=== PATIENT | female | born 1990 | race Caucasian/White ===

== ENCOUNTER 2016-08-26 20:21 | Emergency (ER) | payer OTHER ==
[2016-08-26 21:59] VITALS: BP 145/89
== END 2016-08-26 21:59 | disposition home or self-care (01) ==
LOC: ED 20:21
DX: M54.32 Sciatica, left side (principal); M54.31 Sciatica, right side; E11.9 Type 2 diabetes mellitus without complications; Z79.84 Long term (current) use of oral hypoglycemic drugs
CPT/HCPCS: J1885; J2270; J2405; Q0162

== ENCOUNTER 2016-08-29 00:32 | Emergency (ER) | payer OTHER ==
[2016-08-29 04:20] VITALS: BP 121/61
== END 2016-08-29 04:20 | disposition home or self-care (01) ==
LOC: ED 00:32
DX: M54.31 Sciatica, right side (principal); E11.9 Type 2 diabetes mellitus without complications; Z79.84 Long term (current) use of oral hypoglycemic drugs
CPT/HCPCS: J1885

== ENCOUNTER 2016-09-21 22:38 | Emergency (ER) | payer OTHER ==
[2016-09-21 23:13] VITALS: BP 163/109
== END 2016-09-21 23:13 | disposition home or self-care (01) ==
LOC: ED 22:38
DX: N76.0 Acute vaginitis (principal); E11.9 Type 2 diabetes mellitus without complications; Z79.84 Long term (current) use of oral hypoglycemic drugs

== ENCOUNTER 2017-03-15 12:37 | Emergency (ER) | payer OTHER ==
[2017-03-15 12:45] VITALS: BP 134/93
== END 2017-03-15 13:23 | disposition home or self-care (01) ==
LOC: ED 12:37
DX: L70.0 Acne vulgaris (principal); E11.9 Type 2 diabetes mellitus without complications; M54.30 Sciatica, unspecified side

== ENCOUNTER 2017-03-16 21:52 | Emergency (ER) | payer OTHER | END 2017-03-16 22:38 | disposition left against medical advice (07) | LOC: ED 21:52 | DX: L53.9 Erythematous condition, unspecified (principal); Z53.21 Procedure and treatment not carried out due to patient leaving prior to being seen by health care provider ==

== ENCOUNTER 2017-03-17 15:49 | Inpatient (IN) | payer OTHER ==
[~2017-03-17] VITALS: Ht 160 cm; Wt 112.5 kg
--- NOTE | 2017-03-17 16:45 | NUR ---
PT AWAITING MSE FOR EVAL OF POSS ABSCESS TO L SIDE CHIN/MANDIBLE
[2017-03-17 17:33] LABS: BASOPHIL % 0.6 % (0-2); PLATELET COUNT 179 x10^3mcL (130-400); RED CELL DISTRIBUTION WIDTH 12.8 % (11.5-14.5)
[2017-03-17 17:38] LABS: CALCIUM 9.2 mg/dL (8.5-10.1); CARBON DIOXIDE 28.7 mmol/L (21-32); CHLORIDE SERUM 99 mmol/L (98-107); CREATININE SERUM 0.6 mg/dL (0.6-1.0); GFR1 > 60 mL/min; GLUCOSE SERUM 291 mg/dL (74-106); POTASSIUM SERUM 3.9 mmol/L (3.5-5.1); SODIUM SERUM 135 mmol/L (136-145)
--- NOTE | 2017-03-17 18:02 | NUR ---
PT TO GO TO CT, HAS ROOM ASSIGNMENT BUT CANNOT GO UP UNTIL CT RESULTED AND OKAY PER DR. MARQUEZ
--- NOTE | 2017-03-17 18:04 | NUR ---
PER DR. MARQUEZ NO BLOOD CULTURES NEED TO BE DONE PRIOR TO ABX
--- NOTE | 2017-03-17 18:12 | NUR ---
PT OFF UNIT TO CT
[2017-03-17 18:15] LABS: microscopic required? YES; urine erythrocyte NEGATIVE (NEGATIVE)
--- NOTE | 2017-03-17 18:36 | NUR ---
CALLED TO CT TO START NEW IV LINE
[2017-03-17 18:38] LABS: MAGNESIUM 1.8 mg/dL (1.8-2.4); PHOSPHOROUS 3.3 mg/dL (2.5-4.9)
[2017-03-17 18:40] LABS: AMPHETAMINE QUAL UR NONE DETECTED (NEG <=1000)
[2017-03-17 18:40] LABS: ALBUMIN 3.2 g/dL (3.4-5.0); CHOLESTEROL/HDL RATIO 6.9
[2017-03-17 18:46] LABS: T3 TOTAL 1.19 ng/mL
--- NOTE | 2017-03-17 18:56 | NUR ---
REPORT GIVEN TO CHRISTOPHER CARDOSO.
[2017-03-17 18:57] LABS: FREE T4 1.11 ng/dL (0.76-1.46); FREE THYROXINE INDEX 3.2 ug/dL (1.4-4.5); T4(THYROXINE) 11.1 ug/dL (4.7-13.3)
--- NOTE | 2017-03-17 19:13 | NUR ---
REPORT GIVEN TO BUCK CARDOSO
--- NOTE | 2017-03-17 19:52 | NUR ---
PT REQUESTING TO USE RESTROOM. PT DENIES DIZZINESS, AMBULATED TO RESTROOM WITH STEADY GAIT.
[2017-03-17 20:20] VITALS: BP 146/93
--- NOTE | 2017-03-17 20:26 | NUR ---
RECEIVED PATIENT FROM ED VIA GUERNEY, PATIENT ALERT AND ORIENTED MOTHER AT BEDSIDE, TELE # 58 ST, IV ACCESS TO LAC WNL, C/O PAIN TO LEFT FACE WILL MEDICATE ORDERED, ORIENTED PATIENT TO ROOM AND SURROUNDINGS, BED IN LOW POSITION, BED RAILS UP X 2, CALL LIGHT WITHIN REACH, WILL ENDORSE CARE TO PRIMARY NURSE JACQUELINE CARDOSO
[2017-03-17 20:54] VITALS: BP 146/93
--- NOTE | 2017-03-17 21:00 | NUR ---
RECEIVED PT FROM YUAN CARDOSO. AAOX4. TELE #58. DENIES CP/PRESSURE AT THIS TIME. LUNGS CTA BILAT. DENIES SOB ON RA. PULSES STRONG. EDEMA TO BLE. BOWEL SOUNDS ACTIVE X4. IV TO LAC PATENT AND INTACT INFUSING WELL. PT AMBULATORY. COMPLAINING OF PAIN TO FACE D/T CELLULITIS. WILL MEDICATE PER EMAR PROTOCOL. BED IN LOWEST POSITION. CALL LIGHT WITHIN REACH. WILL CONTINUE TO MONITOR
--- NOTE | 2017-03-18 01:14 | NUR ---
PT RESTING PEACEFULLY IN BED. RESPIRATIONS EVEN AND UNLABORED. NO ACUTE DISTRESS AT THIS TIME. NO COMPLAINTS OF PAIN. IV TO LAC PATENT AND INTACT. INFUSING WELL. BED IN LOWEST POSITION. CALL LIGHT WITHIN REACH. WILL CONTINUE TO MONITOR
[2017-03-18 05:29] VITALS: BP 125/86
--- NOTE | 2017-03-18 06:26 | NUR ---
PT RESTING IN BED. AAOX4. COMPLAINED OF PAIN 10/06 AND MEDICATED WITH NORCO PRN. RESPIRATIONS EVEN AND UNLABORED. NO ACUTE DISTRESS AT THIS TIME. IV TO LAC PATENT AND INTACT. INFUSING WELL NS @120 ML/HR. BED IN LOWEST POSITION. CALL LIGHT WITHIN REACH. WILL ENDORSE CARE TO ONCOMING SHIFT NURSE
[2017-03-18 06:30] LABS: BASOPHIL % 0.5 % (0-2); PLATELET COUNT 157 x10^3mcL (130-400)
[2017-03-18 06:47] LABS: CARBON DIOXIDE 26.2 mmol/L (21-32); CHLORIDE SERUM 102 mmol/L (98-107); CREATININE SERUM 0.6 mg/dL (0.6-1.0); GFR1 > 60 mL/min; GLUCOSE SERUM 235 mg/dL (74-106); POTASSIUM SERUM 3.6 mmol/L (3.5-5.1); SODIUM SERUM 136 mmol/L (136-145)
--- NOTE | 2017-03-18 07:57 | NUR ---
AT 0715 - RECEIVED PATIENT FROM NIGHT NURSE. PATIENT SLEEPING. RESPIRATIONS REGULAR. MONITOR SHOWING SINUS RHYTHM; RATE 90'S. IV INFUSING NS AT 120ML/HR. AT 0745 - ULTRASOUD IN PROGRESS. PATIENT AWAKE, ALERT AND ORIENTED.
[2017-03-18 08:52] VITALS: BP 127/86
--- NOTE | 2017-03-18 10:20 | NUR ---
AT 0820 - SEEN BY DR CROWE DURING MORNING ROUNDS. MEDICAL TEAM DOCTORS, ROBER MICHELLE AND MYSELF PRIMARY NURSE ALSO PRESENT. SPOKE WITH PATIENT ABOUT PLAN OF TREATMENT WITH ANTIBIOTICS. PATIENT VERBALIZED UNDERSTANDING. PATIENT WAS ABLE TO TOLERATE BREAKFAST. AT 0940 - C/O SLIGHT NAUSEA BUT SAYS THAT IT HAS SUBSIDED AND DOES NOT WANT MEDICATION AT THIS TIME.
[2017-03-18 12:57] VITALS: BP 134/92
--- NOTE | 2017-03-18 13:23 | NUR ---
AT 1200 - PATIENT REQUESTED TO GO TO [facility] TO SEE HER 4 YEAR OLD SON. OBTAINED PERMISSION FROM DR AND PATIENT ESCORTED AMBULATORY TO LOBBY AND THEN BACK TO ROOM. AT 1230 - IV RESITED IN LFA. IV FROM LAC REMOVED INTACT. PARENTS AT BEDSIDE. AT 1345 - SEEN AND EXAMINED BY DR EISENBERG. HYDROCORTISONE 1 % CREAM APPLIED TO L FACE SWELLING FOR ITCHINESS. K-PAD SET-UP AND PATIENT INSTRUCTED IN USE.
[2017-03-18 17:17] VITALS: BP 111/69
--- NOTE | 2017-03-18 18:39 | NUR ---
QUIET AFTERNOON. SWELLING AND REDDNESS OF L FACE APPEARS REDUCED. PATIENT REPORT GOOD RELIEF WITH K-PAD. NO ADDITIONAL PAIN MEDICATION REQUIRED. TOLERATING FOOD AND FLUIDS PO. IV INFUSING NS AT 120ML/HR. AMBUATING IN ROOM. VSS. AFEBRILE. WILL ENDORSE CARE TO NIGHT NURSE.
--- NOTE | 2017-03-18 19:29 | NUR ---
C/O HEADACHE AND MEDICATED WITH TYLANOL PER EMAR. CARE ENDORSED TO NIGHT NURSE.
--- NOTE | 2017-03-18 20:00 | NUR ---
RECEIVED PT IN BED, ALERT AND ORIENTED. DENIES HEADACHE/DIZZINESS . FACIAL SWELLING WITH SLIGHT REDNESS, DENIES PAIN OR DIFF. SWALLOWING. RESP. EVEN AND UNLABORED. DENIES SOB OR ANY DISTRESS . AFEBRILE AND VITAL SIGNS STABLE. SR ON THE MONITOR, DENIES CHEST PAIN OR PRESSURE. IVF, NS AT 120ML/HR, INTACT AND INFUSING VIA LFA, SITE CLEAR. AMBULATES. VOIDING FREELY. CALL LIGHT WITHIN REACH. WILL CONTINUE TO MONITOR.
[2017-03-18 21:05] VITALS: BP 100/58
--- NOTE | 2017-03-18 23:10 | NUR ---
NO COMPLAINTS NOTED AT THIS TIME. WILL CONTINUE TO MONITOR.
--- NOTE | 2017-03-19 02:16 | NUR ---
SLEEPING AT THIS TIME, EASILY AROUSABLE. NO DISTRESS NOTED. WILL CONTINUE TO MONITOR.
[2017-03-19 05:02] VITALS: BP 95/55
--- NOTE | 2017-03-19 06:22 | NUR ---
AFEBRILE AND VITAL SIGNS STABLE. RESP. EVEN AND UNLABORED. NO SOB OR DISTRESS NOTED. SLEPT WELL DURING THE NIGHT. DENIES PAIN OR ANY DISCOMFORT. DUE MEDS GIVEN ORDERED, ZULMA. WELL. IVF INTACT AND INFUSING WELL, SITE CLEAR. VOIDING FREELY. KEPT COMFORTABLE. WILL ENDORSE TO INCOMING NURSE.
[2017-03-19 06:23] LABS: BASOPHIL % 0.4 % (0-2); PLATELET COUNT 200 x10^3mcL (130-400)
[2017-03-19 06:24] LABS: CALCIUM 8.5 mg/dL (8.5-10.1); CARBON DIOXIDE 27.1 mmol/L (21-32); CHLORIDE SERUM 103 mmol/L (98-107); CREATININE SERUM 0.5 mg/dL (0.6-1.0); GFR1 > 60 mL/min; GLUCOSE SERUM 194 mg/dL (74-106); POTASSIUM SERUM 3.7 mmol/L (3.5-5.1); SODIUM SERUM 137 mmol/L (136-145)
--- NOTE | 2017-03-19 07:32 | NUR ---
RECEIVED PT FROM NIGHT NURSE IN NO ACUTE DISTRESS. PT ASLEEP IN BED, RESPIRATIONS EVEN AND UNLABORED ON RA. IVF INFUSING AT BEDSIDE. BED IN LOWEST POSITION. CALL LIGHT WITHIN REACH. WILL CONTINUE TO MONITOR.
[2017-03-19 08:56] VITALS: BP 102/63
[2017-03-19 10:18] VITALS: Ht 160 cm; Wt 112.5 kg
--- NOTE | 2017-03-19 10:35 | NUR ---
PT CONVERTED TO M/S. TELE #58 RETURNED TO TELE STATION
[2017-03-19] MEDS ORDERED: CLINDAMYCIN HC300 MG PO (12:07)
[2017-03-19] MEDS ORDERED: LAC PO (12:08)
[2017-03-19 12:19] VITALS: BP 118/84
[2017-03-19 12:30] VITALS: BP 102/63
--- NOTE | 2017-03-19 12:33 | NUR ---
PT EATING LUNCH IN NO ACUTE DISTRESS. RESPIRATIONS EVEN AND UNLABORED ON RA. IVF INFUSING AT BEDSIDE. DENIES PAIN AT THIS TIME. BED IN LOWEST POSITION. CALL LIGHT WITHIN REACH. FAMILY AT BEDSIDE. WILL CONTINUE TO MONITOR.
--- NOTE | 2017-03-19 14:18 | NUR ---
PT D/C TO HOME IN NO ACUTE DISTRESS. RESPIRATIONS EVEN AND UNLABORED ON RA. AAOX4. PT GIVEN D/C INSTRUCTIONS, GIVEN NEW PRESCRIPTIONS, INSTRUCTED TO FOLLOW UP WITH PCP. IV D/C INTACT. ESCORTED TO D/C OFFICE BY AND [employer]FFY STUDENT NURSE, PT AMBULATORY.
== END 2017-03-19 14:17 | disposition home or self-care (01) | DRG 383 ==
LOC: ED 15:49 → DU 17:16 → EDBEDREQ 17:18 → DU 20:15 → MU 03-19 10:36
PROVIDERS: Emergency Medicine; ADMIT Family Medicine Sports Medicine
DX: L02.01 Cutaneous abscess of face (principal); N17.0 Acute kidney failure with tubular necrosis; E44.0 Moderate protein-calorie malnutrition; D68.69 Other thrombophilia; E87.1 Hypo-osmolality and hyponatremia; E11.65 Type 2 diabetes mellitus with hyperglycemia; Z68.41 Body mass index [BMI] 40.0-44.9, adult; R80.9 Proteinuria, unspecified; E78.5 Hyperlipidemia, unspecified; E66.01 Morbid (severe) obesity due to excess calories; Z79.84 Long term (current) use of oral hypoglycemic drugs
CPT/HCPCS: 82962; 83880; 84439; J1170; J2405; J3370; J3490; J7030; J7050; Q0092; Q9967

== ENCOUNTER 2017-05-02 15:31 | Inpatient (IN) | payer OTHER ==
[~2017-05-02] VITALS: Ht 160 cm; Wt 112.4 kg
[~2017-05-02 15:31] MED LIST: CLINDAMYCIN HC300 MG PO; LAC PO
[2017-05-02 16:16] VITALS: Ht 160 cm; Wt 112.4 kg
[2017-05-02 20:05] LABS: PLATELET COUNT 185 x10^3mcL (130-400)
[2017-05-02 20:20] LABS: ALBUMIN 2.4 g/dL (3.4-5.0); ALKALINE PHOSPHATASE 119 U/L (46-116); ALT/SGPT 65 U/L (14-59); AST/SGOT 16 U/L (15-37); BILIRUBIN TOTAL 0.9 mg/dL (0.20-1.00); CALCIUM 9.3 mg/dL (8.5-10.1); CARBON DIOXIDE 14.4 mmol/L (21-32); CHLORIDE SERUM 95 mmol/L (98-107); CREATININE SERUM 0.8 mg/dL (0.6-1.0); GFR1 > 60 mL/min; GLUCOSE SERUM 313 mg/dL (74-106); POTASSIUM SERUM 3.1 mmol/L (3.5-5.1); SODIUM SERUM 130 mmol/L (136-145); TOTAL PROTEIN, SERUM 8.2 g/dL (6.4-8.2)
[2017-05-02] MEDS ORDERED: METFORMIN500 M1 PO (20:26)
[2017-05-02 21:00] VITALS: BP 102/50
[2017-05-02 21:13] LABS: BAND NEUTROPHIL 11 % (0-10); BASOPHIL 0 % (0-2); MONOCYTE 7 % (0-7); SEGMENTED NEUTROPHILS 69 % (37-75); rbc morphology (normal/abnorm) NORMAL (NORMAL)
[2017-05-02 21:34] LABS: T3 TOTAL 0.96 ng/mL
[2017-05-02 22:10] LABS: MAGNESIUM 2.1 mg/dL (1.8-2.4); PHOSPHOROUS 2.1 mg/dL (2.5-4.9)
[2017-05-02 22:25] LABS: CHOLESTEROL/HDL RATIO 10.2
[2017-05-02 23:06] LABS: FREE T4 1.83 ng/dL (0.76-1.46); FREE THYROXINE INDEX 4.8 ug/dL (1.4-4.5); T4(THYROXINE) 11.6 ug/dL (4.7-13.3)
[2017-05-03] VITALS (8 sets, daily range): BP systolic 120–142; BP diastolic 60–76
[2017-05-03 01:46] LABS: CALCIUM 9.1 mg/dL (8.5-10.1); CARBON DIOXIDE 12.2 mmol/L (21-32); CHLORIDE SERUM 98 mmol/L (98-107); CREATININE SERUM 0.8 mg/dL (0.6-1.0); GFR1 > 60 mL/min; GLUCOSE SERUM 298 mg/dL (74-106); MAGNESIUM 2.2 mg/dL (1.8-2.4); POTASSIUM SERUM 3.1 mmol/L (3.5-5.1); SODIUM SERUM 131 mmol/L (136-145)
[2017-05-03 06:07] LABS: BASOPHIL % 0.1 % (0-2); PLATELET COUNT 183 x10^3mcL (130-400); RED CELL DISTRIBUTION WIDTH 12.9 % (11.5-14.5)
[2017-05-03 06:10] LABS: CALCIUM 8.8 mg/dL (8.5-10.1); CHLORIDE SERUM 106 mmol/L (98-107); CREATININE SERUM 0.7 mg/dL (0.6-1.0); GFR1 > 60 mL/min; GLUCOSE SERUM 153 mg/dL (74-106); MAGNESIUM 2.2 mg/dL (1.8-2.4); PHOSPHOROUS 1.4 mg/dL (2.5-4.9); SODIUM SERUM 137 mmol/L (136-145)
[2017-05-03 10:40] LABS: CALCIUM 8.3 mg/dL (8.5-10.1); CHLORIDE SERUM 101 mmol/L (98-107); CREATININE SERUM 0.7 mg/dL (0.6-1.0); GFR1 > 60 mL/min; GLUCOSE SERUM 277 mg/dL (74-106); MAGNESIUM 2.2 mg/dL (1.8-2.4); PHOSPHOROUS 1.3 mg/dL (2.5-4.9); POTASSIUM SERUM 3.3 mmol/L (3.5-5.1); SODIUM SERUM 132 mmol/L (136-145)
[2017-05-03 12:53] LABS: CALCIUM 8.1 mg/dL (8.5-10.1); CARBON DIOXIDE 17.2 mmol/L (21-32); CHLORIDE SERUM 104 mmol/L (98-107); CREATININE SERUM 0.7 mg/dL (0.6-1.0); GFR1 > 60 mL/min; GLUCOSE SERUM 258 mg/dL (74-106); MAGNESIUM 2.1 mg/dL (1.8-2.4); PHOSPHOROUS 1.3 mg/dL (2.5-4.9); POTASSIUM SERUM 3.6 mmol/L (3.5-5.1); SODIUM SERUM 134 mmol/L (136-145)
[2017-05-03 17:18] LABS: CALCIUM 8.2 mg/dL (8.5-10.1); CHLORIDE SERUM 104 mmol/L (98-107); CREATININE SERUM 0.7 mg/dL (0.6-1.0); GFR1 > 60 mL/min; GLUCOSE SERUM 266 mg/dL (74-106); POTASSIUM SERUM 3.2 mmol/L (3.5-5.1); SODIUM SERUM 135 mmol/L (136-145)
[2017-05-03 17:21] LABS: MAGNESIUM 2.2 mg/dL (1.8-2.4); PHOSPHOROUS 1.1 mg/dL (2.5-4.9)
[2017-05-03 21:34] LABS: CALCIUM 8.3 mg/dL (8.5-10.1); CARBON DIOXIDE 21.2 mmol/L (21-32); CHLORIDE SERUM 104 mmol/L (98-107); CREATININE SERUM 0.7 mg/dL (0.6-1.0); GFR1 > 60 mL/min; GLUCOSE SERUM 258 mg/dL (74-106); MAGNESIUM 2.2 mg/dL (1.8-2.4); PHOSPHOROUS 1.2 mg/dL (2.5-4.9); POTASSIUM SERUM 3.2 mmol/L (3.5-5.1); SODIUM SERUM 135 mmol/L (136-145)
[2017-05-04 00:01] LABS: microscopic required? YES; urine erythrocyte 1+ (NEGATIVE)
[2017-05-04 00:05] LABS: AMPHETAMINE QUAL UR NONE DETECTED (NEG <=1000)
[2017-05-04 02:03] LABS: CARBON DIOXIDE 20.9 mmol/L (21-32); CHLORIDE SERUM 104 mmol/L (98-107); CREATININE SERUM 0.7 mg/dL (0.6-1.0); GFR1 > 60 mL/min; GLUCOSE SERUM 223 mg/dL (74-106); MAGNESIUM 2.1 mg/dL (1.8-2.4); PHOSPHOROUS 1.1 mg/dL (2.5-4.9); POTASSIUM SERUM 3.3 mmol/L (3.5-5.1); SODIUM SERUM 135 mmol/L (136-145)
[2017-05-04 03:10] VITALS: BP 128/69
[2017-05-04 05:07] LABS: CALCIUM 8.5 mg/dL (8.5-10.1); CARBON DIOXIDE 18.4 mmol/L (21-32); CHLORIDE SERUM 105 mmol/L (98-107); CREATININE SERUM 0.7 mg/dL (0.6-1.0); GFR1 > 60 mL/min; GLUCOSE SERUM 241 mg/dL (74-106); MAGNESIUM 2.1 mg/dL (1.8-2.4); PHOSPHOROUS 1.7 mg/dL (2.5-4.9); POTASSIUM SERUM 3.5 mmol/L (3.5-5.1); SODIUM SERUM 135 mmol/L (136-145)
[2017-05-04 05:31] LABS: PLATELET COUNT 193 x10^3mcL (130-400); RED CELL DISTRIBUTION WIDTH 13.5 % (11.5-14.5)
[2017-05-04 06:07] LABS: BAND NEUTROPHIL 7 % (0-10); BASOPHIL 0 % (0-2); METAMYELOCTE 3 % (0-2); MONOCYTE 9 % (0-7); SEGMENTED NEUTROPHILS 63 % (37-75); rbc morphology (normal/abnorm) NORMAL (NORMAL)
[2017-05-04 08:00] VITALS: BP 115/64
[2017-05-04 12:55] VITALS: BP 99/65
[2017-05-04 14:00] VITALS: BP 109/64
[2017-05-04 17:11] VITALS: BP 110/67
[2017-05-04 20:51] VITALS: BP 106/68
[2017-05-05 04:36] VITALS: BP 127/73
[2017-05-05 06:49] LABS: PLATELET COUNT 191 x10^3mcL (130-400); RED CELL DISTRIBUTION WIDTH 13.7 % (11.5-14.5)
[2017-05-05 07:13] LABS: CARBON DIOXIDE 24.1 mmol/L (21-32); CHLORIDE SERUM 102 mmol/L (98-107); CREATININE SERUM 0.6 mg/dL (0.6-1.0); GFR1 > 60 mL/min; GLUCOSE SERUM 269 mg/dL (74-106); MAGNESIUM 2.1 mg/dL (1.8-2.4); PHOSPHOROUS 2.5 mg/dL (2.5-4.9); POTASSIUM SERUM 3.1 mmol/L (3.5-5.1); SODIUM SERUM 135 mmol/L (136-145)
[2017-05-05 07:35] LABS: BAND NEUTROPHIL 0 % (0-10); BASOPHIL 0 % (0-2); MONOCYTE 7 % (0-7); MYELOCYTE 3 % (0-2); SEGMENTED NEUTROPHILS 73 % (37-75)
[2017-05-05 09:49] VITALS: BP 131/77
[2017-05-05 16:50] VITALS: BP 152/91
[2017-05-05 21:46] VITALS: BP 102/49
[2017-05-05 22:38] VITALS: BP 139/82
[2017-05-06 04:15] VITALS: BP 133/82
[2017-05-06 06:51] LABS: PLATELET COUNT 234 x10^3mcL (130-400); RED CELL DISTRIBUTION WIDTH 13.4 % (11.5-14.5)
[2017-05-06 07:12] LABS: CALCIUM 8.7 mg/dL (8.5-10.1); CARBON DIOXIDE 24.9 mmol/L (21-32); CHLORIDE SERUM 102 mmol/L (98-107); CREATININE SERUM 0.5 mg/dL (0.6-1.0); GFR1 > 60 mL/min; GLUCOSE SERUM 198 mg/dL (74-106); MAGNESIUM 2.1 mg/dL (1.8-2.4); PHOSPHOROUS 2.7 mg/dL (2.5-4.9); SODIUM SERUM 137 mmol/L (136-145)
[2017-05-06 07:27] LABS: POTASSIUM SERUM 2.7 mmol/L (3.5-5.1)
[2017-05-06 09:59] VITALS: BP 129/85
[2017-05-06 10:01] VITALS: BP 129/85
[2017-05-06] MEDS ORDERED: METFORMIN500 M1 PO (10:09)
[2017-05-06] MEDS ORDERED: ZIT250 PO (10:11)
[2017-05-06] MEDS ORDERED: BD LACTINEX1.4 MG PO (10:12)
[2017-05-06] MEDS ORDERED: LEVEMIR100 U/M1 SQ (10:19)
[2017-05-06] MEDS ORDERED: BG FS (10:21)
[2017-05-06] MEDS ORDERED: HUMULIN R100 U/1 M1 SC (10:28)
[2017-05-06 11:05] LABS: BAND NEUTROPHIL 10 % (0-10); MONOCYTE 7 % (0-7); SEGMENTED NEUTROPHILS 66 % (37-75)
[2017-05-06 11:06] LABS: ATYPICAL LYMPH 1 %; BASOPHIL 0 % (0-2); METAMYELOCTE 2 % (0-2)
[2017-05-06 11:09] LABS: PLATELET MORPHOLOGY PLATELETS NORMAL; rbc morphology (normal/abnorm) NORMAL (NORMAL)
[2017-05-06 16:39] LABS: CALCIUM 8.3 mg/dL (8.5-10.1); CARBON DIOXIDE 25.5 mmol/L (21-32); CHLORIDE SERUM 103 mmol/L (98-107); CREATININE SERUM 0.6 mg/dL (0.6-1.0); GFR1 > 60 mL/min; GLUCOSE SERUM 204 mg/dL (74-106); POTASSIUM SERUM 3.2 mmol/L (3.5-5.1); SODIUM SERUM 139 mmol/L (136-145)
[2017-05-06 16:46] VITALS: BP 116/66
== END 2017-05-06 17:53 | disposition home or self-care (01) | DRG 420 ==
LOC: ED 15:31 → DU 20:19 → IC 20:19 → DU 05-04 14:00 → MU 05-05 09:10
PROVIDERS: Emergency Medicine; Family Medicine
PROC: 02HV33Z Insertion of Infusion Device into Superior Vena Cava, Percutaneous Approach (ICD-10-PCS; principal; 2017-05-03)
PROC: B5181ZA Fluoroscopy of Superior Vena Cava using Low Osmolar Contrast, Guidance (ICD-10-PCS; 2017-05-03)
DX: E11.10 Type 2 diabetes mellitus with ketoacidosis without coma (principal); J96.00 Acute respiratory failure, unspecified whether with hypoxia or hypercapnia; N17.0 Acute kidney failure with tubular necrosis; E43 Unspecified severe protein-calorie malnutrition; J18.9 Pneumonia, unspecified organism; D68.69 Other thrombophilia; Z68.41 Body mass index [BMI] 40.0-44.9, adult; E87.1 Hypo-osmolality and hyponatremia; E87.6 Hypokalemia; E83.39 Other disorders of phosphorus metabolism; E78.5 Hyperlipidemia, unspecified; E66.01 Morbid (severe) obesity due to excess calories; E02 Subclinical iodine-deficiency hypothyroidism
CPT/HCPCS: 36556; 36600; 82962; 83880; 84439; 87804; G0480; J0696; J1170; J1642; J1644; J1815; J1885; J1956; J2001; J2060; J2405; J3480; J3490; J7030; J7613; J7620; J7644; Q0092

== ENCOUNTER 2017-07-13 04:50 | Emergency (ER) | payer OTHER ==
[~2017-07-13] VITALS: Ht 162.6 cm; Wt 108.4 kg
[~2017-07-13 04:50] MED LIST changes: +BD LACTINEX1.4 MG PO; +BG FS; +HUMULIN R100 U/1 M1 SC; +LEVEMIR100 U/M1 SQ; +METFORMIN500 M1 PO; +ZIT250 PO
[2017-07-13 04:59] VITALS: Ht 162.6 cm; Wt 108.4 kg
[2017-07-13 07:19] VITALS: BP 125/68
== END 2017-07-13 07:50 | disposition home or self-care (01) ==
LOC: ED 04:50
DX: H66.91 Otitis media, unspecified, right ear (principal); E11.65 Type 2 diabetes mellitus with hyperglycemia
CPT/HCPCS: 82962; J7030

== ENCOUNTER 2017-07-25 03:20 | Emergency (ER) | payer OTHER ==
[2017-07-25 05:29] VITALS: BP 143/95
== END 2017-07-25 05:29 | disposition home or self-care (01) ==
LOC: ED 03:20
DX: R21 Rash and other nonspecific skin eruption (principal); E11.9 Type 2 diabetes mellitus without complications
CPT/HCPCS: Q0163

== ENCOUNTER 2017-07-27 03:32 | Emergency (ER) | payer OTHER ==
[~2017-07-27] VITALS: Ht 162.6 cm; Wt 108.0 kg
[2017-07-27 03:42] VITALS: Ht 162.6 cm; Wt 108.0 kg
[2017-07-27 04:30] VITALS: BP 138/91
== END 2017-07-27 04:30 | disposition home or self-care (01) ==
LOC: ED 03:32
DX: L50.9 Urticaria, unspecified (principal); E11.9 Type 2 diabetes mellitus without complications
CPT/HCPCS: J1200; J7512

== ENCOUNTER 2017-08-25 02:54 | Emergency (ER) | payer OTHER ==
[~2017-08-25] VITALS: Ht 160 cm; Wt 108.9 kg
[2017-08-25 03:19] VITALS: Ht 160 cm; Wt 108.9 kg
[2017-08-25 04:09] LABS: BASOPHIL % 0.7 % (0-2); PLATELET COUNT 229 x10^3mcL (130-400); RED CELL DISTRIBUTION WIDTH 13.3 % (11.5-14.5)
[2017-08-25 04:22] LABS: CALCIUM 8.8 mg/dL (8.5-10.1); CHLORIDE SERUM 99 mmol/L (98-107); CREATININE SERUM 0.6 mg/dL (0.6-1.0); GFR1 > 60 mL/min; GLUCOSE SERUM 281 mg/dL (74-106); POTASSIUM SERUM 3.3 mmol/L (3.5-5.1); SODIUM SERUM 136 mmol/L (136-145)
[2017-08-25 04:27] LABS: ALBUMIN 3.4 g/dL (3.4-5.0); ALKALINE PHOSPHATASE 62 U/L (46-116); ALT/SGPT 87 U/L (14-59); AST/SGOT 20 U/L (15-37); BILIRUBIN TOTAL 0.61 mg/dL (0.20-1.00); LIPASE 94 IU/L (73-393); TOTAL PROTEIN, SERUM 6.9 g/dL (6.4-8.2)
[2017-08-25 05:44] VITALS: BP 142/82
== END 2017-08-25 05:44 | disposition home or self-care (01) ==
LOC: ED 02:54
PROVIDERS: Emergency Medicine
DX: O20.0 Threatened abortion (principal); R10.30 Lower abdominal pain, unspecified; E11.9 Type 2 diabetes mellitus without complications; Z3A.01 Less than 8 weeks gestation of pregnancy
CPT/HCPCS: 36415; 87491; 87591; Q0092

== ENCOUNTER 2017-08-27 10:09 | Emergency (ER) | payer OTHER ==
[~2017-08-27] VITALS: Ht 160 cm; Wt 108.9 kg
[2017-08-27 11:33] LABS: BASOPHIL % 0.4 % (0-2); PLATELET COUNT 205 x10^3mcL (130-400); RED CELL DISTRIBUTION WIDTH 13.1 % (11.5-14.5)
[2017-08-27 11:50] VITALS: BP 134/91
== END 2017-08-27 11:50 | disposition home or self-care (01) ==
LOC: ED 10:09
PROVIDERS: Emergency Medicine
DX: O20.0 Threatened abortion (principal); R10.13 Epigastric pain; E11.9 Type 2 diabetes mellitus without complications; Z3A.01 Less than 8 weeks gestation of pregnancy
CPT/HCPCS: 36415

== ENCOUNTER 2017-10-18 22:51 | Emergency (ER) | payer OTHER ==
[~2017-10-18] VITALS: Ht 160 cm; Wt 111.1 kg
[2017-10-18 22:56] VITALS: BP 144/82; Ht 160 cm; Wt 111.1 kg
== END 2017-10-18 23:45 | disposition home or self-care (01) ==
LOC: ED 22:51
DX: S39.012A Strain of muscle, fascia and tendon of lower back, initial encounter (principal); E11.9 Type 2 diabetes mellitus without complications; X58.XXXA Exposure to other specified factors, initial encounter; Y93.89 Activity, other specified; Y92.89 Other specified places as the place of occurrence of the external cause; Y99.8 Other external cause status

== ENCOUNTER 2017-10-29 01:07 | Emergency (ER) | payer OTHER ==
[~2017-10-29] VITALS: Ht 160 cm; Wt 102.5 kg
[2017-10-29 01:17] VITALS: Ht 160 cm; Wt 102.5 kg
[2017-10-29 02:53] VITALS: BP 164/105
== END 2017-10-29 02:54 | disposition left against medical advice (07) ==
LOC: ED 01:07
DX: Z53.21 Procedure and treatment not carried out due to patient leaving prior to being seen by health care provider (principal)

== ENCOUNTER 2017-11-01 00:43 | Emergency (ER) | payer OTHER ==
[~2017-11-01] VITALS: Ht 160 cm; Wt 112.9 kg
[2017-11-01 00:47] VITALS: Ht 160 cm; Wt 112.9 kg
[2017-11-01 01:54] VITALS: BP 152/99
== END 2017-11-01 01:54 | disposition home or self-care (01) ==
LOC: ED 00:43
DX: M54.41 Lumbago with sciatica, right side (principal); E11.9 Type 2 diabetes mellitus without complications
CPT/HCPCS: J1885

== ENCOUNTER 2017-11-04 11:34 | Emergency (ER) | payer OTHER ==
[~2017-11-04] VITALS: Ht 160 cm; Wt 110.2 kg
[2017-11-04 11:46] VITALS: BP 145/102; Ht 160 cm; Wt 110.2 kg
== END 2017-11-04 12:45 | disposition home or self-care (01) ==
LOC: ED 11:34
DX: L73.9 Follicular disorder, unspecified (principal); E11.9 Type 2 diabetes mellitus without complications; H92.02 Otalgia, left ear
CPT/HCPCS: 82962; J1885

== ENCOUNTER 2017-11-05 22:49 | Emergency (ER) | payer OTHER ==
[~2017-11-05] VITALS: Ht 157.5 cm; Wt 109.8 kg
[2017-11-05 23:03] VITALS: Ht 157.5 cm; Wt 109.8 kg
[2017-11-06 00:48] VITALS: BP 163/100
== END 2017-11-06 00:49 | disposition home or self-care (01) ==
LOC: ED 22:49
DX: S29.012A Strain of muscle and tendon of back wall of thorax, initial encounter (principal); L02.811 Cutaneous abscess of head [any part, except face]; E11.9 Type 2 diabetes mellitus without complications; X58.XXXA Exposure to other specified factors, initial encounter; Y93.89 Activity, other specified; Y92.89 Other specified places as the place of occurrence of the external cause; Y99.8 Other external cause status
CPT/HCPCS: J2001

== ENCOUNTER 2018-12-05 01:41 | Emergency (ER) | payer OTHER ==
[~2018-12-05] VITALS: Ht 160 cm; Wt 110.7 kg
[2018-12-05 01:47] VITALS: Ht 160 cm; Wt 110.7 kg
[2018-12-05 05:30] LABS: BASOPHIL % 0.6 % (0-2); PLATELET COUNT 209 x10^3mcL (130-400); RED CELL DISTRIBUTION WIDTH 13.2 % (11.5-14.5)
[2018-12-05 05:40] LABS: CALCIUM 9.2 mg/dL (8.5-10.1); CARBON DIOXIDE 26.5 mmol/L (21-32); CHLORIDE SERUM 102 mmol/L (98-107); CREATININE SERUM 0.7 mg/dL (0.6-1.0); GFR1 > 60 mL/min; GLUCOSE SERUM 295 mg/dL (74-106); POTASSIUM SERUM 3.7 mmol/L (3.5-5.1); SODIUM SERUM 138 mmol/L (136-145)
[2018-12-05 05:45] LABS: ALKALINE PHOSPHATASE 81 U/L (46-116); ALT/SGPT 110 U/L (14-59); AST/SGOT 46 U/L (15-37); BILIRUBIN TOTAL 0.54 mg/dL (0.20-1.00); TOTAL PROTEIN, SERUM 7.1 g/dL (6.4-8.2)
[2018-12-05 05:46] LABS: ALBUMIN 3.3 g/dL (3.4-5.0)
[2018-12-05 05:48] LABS: HCG SERUM QUALITATIVE NEGATIVE; HCG SERUM QUANTITATIVE 0 mIU/mL
[2018-12-05 06:00] VITALS: BP 140/83
== END 2018-12-05 06:00 | disposition home or self-care (01) ==
LOC: ED 01:41
PROVIDERS: Emergency Medicine
DX: R10.2 Pelvic and perineal pain (principal); R10.32 Left lower quadrant pain; E11.9 Type 2 diabetes mellitus without complications
CPT/HCPCS: 36415; J1885

== ENCOUNTER 2019-02-09 17:34 | Emergency (ER) | payer OTHER ==
[~2019-02-09] VITALS: Ht 160 cm; Wt 110.9 kg
[2019-02-09 17:58] VITALS: Ht 160 cm; Wt 110.9 kg
[2019-02-09 21:26] VITALS: BP 152/96
== END 2019-02-09 21:26 | disposition home or self-care (01) ==
LOC: ED 17:34
DX: J20.9 Acute bronchitis, unspecified (principal); E11.9 Type 2 diabetes mellitus without complications

== ENCOUNTER 2019-03-16 02:15 | Emergency (ER) | payer OTHER ==
[~2019-03-16] VITALS: Ht 160 cm; Wt 112.9 kg
[2019-03-16 02:19] VITALS: Ht 160 cm; Wt 112.9 kg
[2019-03-16 03:56] LABS: BASOPHIL % 0.4 % (0-2); PLATELET COUNT 219 x10^3mcL (130-400); RED CELL DISTRIBUTION WIDTH 13.8 % (11.5-14.5)
[2019-03-16 04:56] VITALS: BP 135/84
== END 2019-03-16 04:56 | disposition home or self-care (01) ==
LOC: ED 02:15
PROVIDERS: Emergency Medicine
DX: O26.891 Other specified pregnancy related conditions, first trimester (principal); R10.31 Right lower quadrant pain; R10.32 Left lower quadrant pain; E11.9 Type 2 diabetes mellitus without complications; Z3A.01 Less than 8 weeks gestation of pregnancy
CPT/HCPCS: 36415